=== PATIENT | male | born 1945 | race Caucasian/White ===

== ENCOUNTER → 2018-11-21 | Outpatient (CLI) | payer OTHER ==
[2018-11-21 12:28] LABS: ABSOLUTE BASOPHILS 0.1 thou/uL (0.0-0.2); ABSOLUTE EOSINOPHILS 0.1 thou/uL (0.0-0.7); ABSOLUTE MONOCYTES 0.5 thou/uL (0.0-1.2); ABSOLUTE NEUTROPHILS 7.5 thou/uL (1.6-8.1); BASOPHILS 0.7 %; EOSINOPHILS 0.9 %; HEMATOCRIT 52.2 % (42.0-52.0); HEMOGLOBIN 17.5 gm/dL (14.0-18.0); LYMPHOCYTES 26.6 %; MCH 30.4 pg (26.0-34.0); MCHC 33.6 g/dL (28.0-37.0); MCV 90.6 fL (80.0-100.0); MONOCYTES 4.6 %; MPV 7.6 fl. (7.2-11.1); NUCLEATED RBCS 0 /100WBC; PLATELET COUNT* 265 thou/uL (150-400); POLYS 67.2 %; RBC 5.76 mil/uL (4.50-6.00); RDW-CV 13.4 % (10.5-14.5); WBC 11.1 thou/uL (4.0-11.0)
[2018-11-21 12:58] LABS: ALBUMIN 3.8 g/dL (3.4-5.0); CREATININE 1.5 mg/dL (0.6-1.3); POTASSIUM 4.5 mmol/L (3.5-5.1); TOTAL BILIRUBIN 0.7 mg/dL (<0.1-1.0); TOTAL PROTEIN 7.5 g/dL (6.4-8.2)
== END ==
LOC: M.LAB 12:00
PROVIDERS: Nurse Practitioner Adult Health
DX: K22.70 Barrett's esophagus without dysplasia (principal); R19.7 Diarrhea, unspecified

== ENCOUNTER 2019-08-09 13:22 | Emergency (ER) | payer OTHER ==
[~2019-08-09] VITALS: Ht 182.9 cm; Wt 86.2 kg
[2019-08-09] MEDS ORDERED: NEURONTIN 300M300 M2 PO (13:35)
[2019-08-09 15:09] VITALS: BP 127/80
== END 2019-08-09 15:10 | disposition home or self-care (01) ==
LOC: M.ERS 13:22
DX: R51 Headache (principal); M54.6 Pain in thoracic spine; M54.2 Cervicalgia; M25.511 Pain in right shoulder; E11.9 Type 2 diabetes mellitus without complications; F17.210 Nicotine dependence, cigarettes, uncomplicated; Z91.041 Radiographic dye allergy status; Z90.49 Acquired absence of other specified parts of digestive tract